=== PATIENT | female | born 2000 | race Two or more races ===

== ENCOUNTER 2023-02-06 21:36 | Emergency (ER) | payer OTHER ==
[~2023-02-06] VITALS: Ht 157.5 cm; Wt 74.8 kg
[2023-02-06] MEDS ORDERED: PRENATA CHEWAB1 EACH (22:03)
[2023-02-07 00:20] LABS: HEMATOCRIT 37.8 % (36.0-45.00); MEAN CELL VOLUME 82.5 fL (80.00-100.00); MEAN CORPUSCULAR HEMOGLOBIN 28.3 pg (27.00-32.0); MEAN CORPUSCULAR HGB CONC 34.4 g/dl (32.0-36.0); PLATELET COUNT 287 K/uL (150-450); RED BLOOD COUNT 4.58 M/uL (4.00-6.00); RED CELL DISTRIBUTION WIDTH 13.8 % (11.5-14.5)
[2023-02-07 00:55] LABS: ALBUMIN 3.6 gm/dL (3.4-5.0); BILIRUBIN TOTAL 0.9 mg/dL (0.3-1.2); CALCIUM 9.5 mg/dL (8.5-10.1); CREATININE SERUM 0.68 mg/dL (0.55-1.02); GFR 107.22; GLOBULINA 4.2 G/DL (2.4-3.5); POTASSIUM 3.32 mEq/L (3.5-5.1); TOTAL PROTEIN 7.8 gm/dL (6.4-8.2)
== END 2023-02-07 03:13 | disposition home or self-care (01) ==
LOC: ER 21:36
PROVIDERS: General Practice
DX: O21.0 Mild hyperemesis gravidarum (principal); Z3A.01 Less than 8 weeks gestation of pregnancy

== ENCOUNTER 2023-04-15 07:54 | Emergency (ER) | payer OTHER ==
[~2023-04-15] VITALS: Ht 152.4 cm; Wt 76.7 kg
[~2023-04-15 07:54] MED LIST: PRENATA CHEWAB1 EACH
[2023-04-15 08:50] LABS: HEMATOCRIT 35.4 % (36.0-45.00); HEMOGLOBIN 12.5 g/dL (12.0-15.00); MEAN CELL VOLUME 84.9 fL (80.00-100.00); MEAN CORPUSCULAR HEMOGLOBIN 29.8 pg (27.00-32.0); MEAN CORPUSCULAR HGB CONC 35.2 g/dl (32.0-36.0); PLATELET COUNT 314 K/uL (150-450); RED BLOOD COUNT 4.18 M/uL (4.00-6.00); RED CELL DISTRIBUTION WIDTH 15.2 % (11.5-14.5)
[2023-04-15 08:51] LABS: URINE APPEARANCE Clear; URINE BILIRRUBIN Negative (NEGATIVE); URINE BLOOD Negative; URINE COLOR Dark Yellow; URINE GLUCOSE Negative (NEGATIVE); URINE LEUKOCYTE Trace; URINE NITRATE Negative
[2023-04-15 08:52] LABS: URINE BACTERIA 498.9 uL (0.0-1933); URINE RBC 11.7 uL (0.0-20.8); URINE WBC 11.7 uL (0.0-23.2)
[2023-04-15 09:20] LABS: URINE MUCUS MODERATE; URINE PROTEIN 100 (NEGATIVE)
[2023-04-15 09:24] LABS: URINE CRYSTALS FEW /HPF
[2023-04-15 09:41] LABS: CALCIUM 9.6 mg/dL (8.5-10.1); CREATININE SERUM 0.65 mg/dL (0.55-1.02); GFR 111.98; POTASSIUM 4.78 mEq/L (3.5-5.1)
== END 2023-04-15 13:12 | disposition home or self-care (01) ==
LOC: ER 07:56
PROVIDERS: Emergency Medicine
DX: O20.8 Other hemorrhage in early pregnancy (principal); Z3A.19 19 weeks gestation of pregnancy; R10.2 Pelvic and perineal pain; Z91.013 Allergy to seafood

== ENCOUNTER 2023-04-20 15:56 | Outpatient (CLI) | payer OTHER | END 2023-04-20 15:57 | disposition home or self-care (01) | LOC: PRENATAL 15:56 | PROVIDERS: ATTEND Obstetrics & Gynecology Maternal & Fetal Medicine | DX: O35.3XX0 Maternal care for (suspected) damage to fetus from viral disease in mother, not applicable or unspecified (principal); O44.00 Complete placenta previa NOS or without hemorrhage, unspecified trimester; Z3A.20 20 weeks gestation of pregnancy ==

== ENCOUNTER → 2023-06-23 08:34 | Outpatient (CLI) | payer OTHER | END | disposition home or self-care (01) | LOC: PRENATAL 08:34 | PROVIDERS: ATTEND Obstetrics & Gynecology Maternal & Fetal Medicine | DX: O26.849 Uterine size-date discrepancy, unspecified trimester (principal); O44.00 Complete placenta previa NOS or without hemorrhage, unspecified trimester; Z3A.29 29 weeks gestation of pregnancy ==

== ENCOUNTER 2023-06-25 17:03 | Inpatient (IN) | payer OTHER ==
[~2023-06-25] VITALS: Ht 154.9 cm; Wt 81.6 kg
[2023-06-25] MEDS ORDERED: RINGERS SOLUTION,LACTATED 1,000 ML IV SCH (17:15)
[2023-06-25] MEDS ORDERED: BETAMETHASONE ACETATE,SOD PHOS 30 MG/5 ML ML IM ONE (17:15)
[2023-06-25] MEDS ORDERED: AMPICILLIN SODIUM 2,000 MG VIAL IV SCH (17:15)
[2023-06-25] MEDS ORDERED: NIFEDIPINE 30 MG TAB.SA.OSM PO ONE (17:15)
[2023-06-25] MEDS ORDERED: NIFEDIPINE 20 MG CAPSULE PO ONE (17:24)
[2023-06-25 17:53] LABS: HEMATOCRIT 32.1 % (36.0-45.00); MEAN CELL VOLUME 83.5 fL (80.00-100.00); MEAN CORPUSCULAR HEMOGLOBIN 28.7 pg (27.00-32.0); MEAN CORPUSCULAR HGB CONC 34.3 g/dl (32.0-36.0); PH,URINE 7.5 (5.0-8.0); PLATELET COUNT 340 K/uL (150-450); RED BLOOD COUNT 3.85 M/uL (4.00-6.00); RED CELL DISTRIBUTION WIDTH 13.7 % (11.5-14.5); URINE APPEARANCE Clear; URINE BILIRRUBIN Negative (NEGATIVE); URINE BLOOD Large; URINE COLOR Yellow; URINE GLUCOSE Negative (NEGATIVE); URINE LEUKOCYTE Negative; URINE NITRATE Negative; URINE PROTEIN Trace (NEGATIVE); URINE UROBILINOGEN 0.2 E.U./dl
[2023-06-25 17:56] LABS: URINE BACTERIA 1136.5 uL (0.0-1933); URINE EPITHELIAL CELLS 9.2 uL (0.0-38.8); URINE RBC 40.3 uL (0.0-20.8); URINE WBC 9.8 uL (0.0-23.2)
[2023-06-25 18:11] LABS: INR < 0.93; PARTIAL THROMBOPLASTIN TIME 28.3 SECONDS (22.0-34.0); PROTHROMBIN TIME 9.8 SECONDS (9.0-11.5)
[2023-06-26] MEDS ORDERED: BETAMETHASONE ACETATE,SOD PHOS 30 MG/5 ML ML IM ONE (17:15)
== END 2023-06-27 09:34 | disposition home or self-care (01) | DRG 833 ==
LOC: LDR 17:03 → OB/GYN 06-26 16:13
PROVIDERS: Obstetrics & Gynecology; ADMIT Obstetrics & Gynecology; ATTEND Obstetrics & Gynecology
PROC: BY4FZZZ Ultrasonography of Third Trimester, Single Fetus (ICD-10-PCS; principal; 2023-06-25)
PROC: 4A1HXCZ Monitoring of Products of Conception, Cardiac Rate, External Approach (ICD-10-PCS; 2023-06-25)
DX: O44.03 Complete placenta previa NOS or without hemorrhage, third trimester (principal); Z3A.30 30 weeks gestation of pregnancy; Z20.822 Contact with and (suspected) exposure to COVID-19

== ENCOUNTER 2023-08-14 11:38 | Outpatient (CLI) | payer OTHER ==
[2023-08-14 12:41] LABS: URINE APPEARANCE Cloudy; URINE BILIRRUBIN Negative (NEGATIVE); URINE BLOOD Negative; URINE COLOR Yellow; URINE GLUCOSE Negative (NEGATIVE); URINE LEUKOCYTE Trace; URINE NITRATE Negative; URINE PROTEIN Negative (NEGATIVE); URINE UROBILINOGEN 0.2 E.U./dl
[2023-08-14 12:46] LABS: URINE EPITHELIAL CELLS 23.9 uL (0.0-38.8); URINE RBC 4.1 uL (0.0-20.8); URINE WBC 30.1 uL (0.0-23.2)
[2023-08-14 12:46] LABS: HEMATOCRIT 31.5 % (36.0-45.00); MEAN CELL VOLUME 81.8 fL (80.00-100.00); MEAN CORPUSCULAR HEMOGLOBIN 28.6 pg (27.00-32.0); PLATELET COUNT 294 K/uL (150-450); RED BLOOD COUNT 3.84 M/uL (4.00-6.00); RED CELL DISTRIBUTION WIDTH 13.7 % (11.5-14.5)
[2023-09-02] MEDS ORDERED: IBUPROFEN800 MG PO (11:46)
== END 2023-08-14 18:00 | disposition home or self-care (01) ==
LOC: OBS/DEL 11:38
PROVIDERS: ATTEND Obstetrics & Gynecology
DX: O26.893 Other specified pregnancy related conditions, third trimester (principal); Z3A.37 37 weeks gestation of pregnancy; O36.8199 Decreased fetal movements, unspecified trimester, other fetus